=== PATIENT | male | born 2000 | race Caucasian/White ===

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

== ENCOUNTER 2022-03-24 11:22 | Emergency (ER) | payer MEDICAID, SELFPAY ==
[2022-03-24 11:23] VITALS: BP 129/73; PULSE 71; RESP 16; TEMP 35.6; O2SAT 100; BMI 37.7
--- NOTE | 2022-03-24 11:45 | EX.ED.DYSGE1 ---
HPI History of Present Illness Chief Complaint: Abd Pain Narrative Narrative: 21-year-old male presents with his mother because of umbilicus drainage and abdominal pain that has had since yesterday. He states he was having abdominal pain previously, and 2 days ago went to an outside facility where he had a CT scan performed and was diagnosed with an umbilical hernia. He was told to follow-up with a surgeon in [place]. He states yesterday he began having pain and discharge from his umbilicus. Mother had inserted a cotton tip swab and removed a large, black substance that was the size of her thumb tip from his umbilicus. He denies any fevers or chills. No nausea or vomiting, no other symptoms. They have noted foul discharge that is green to yellow in color that is malodorous. He has sensitivity around his umbilicus but no noted redness. He denies other symptoms. PFSH PFS Medical History no medical history Home Medications amoxicillin 875 mg-potassium clavulanate 125 mg tablet 1 tab PO BID #20 tabs 03/24/22 [Rx Last Taken Unknown] Allergy/AdvReac Type Severity Reaction Status Date / Time No Known Allergies Allergy Verified 03/24/22 11:22 Surgical History no surgical history Social History Smoking Status: Never smoker ROS ROS ED ROS Narrative Constitutional: No fever, no chills. HEENT: No sore throat. No neck pain. No loss of vision. No rhinorrhea. Cardiovascular: No chest pain. No palpitations. No pedal edema. Respiratory: No cough, no shortness of breath. Abdominal: Pain in umbilicus/abdominal pain. No nausea. No vomiting. Foul-smelling yellow to green discharge that had been slightly bloody. Genitourinary: No dysuria. No hematuria. Musculoskeletal: No myalgias. No arthralgias. Neurologic: No headaches. No dizziness. No lightheadedness. Skin: No rash. No change in color. Psychiatric: No depression. No anxiety. EXAM Physical Exam Narrative Exam Narrative: Afebrile. Vital signs noted. Nontoxic-appearing. HEENT: Normocephalic. Atraumatic. PERRL, EOMI. Neck soft and supple. No point tenderness or step off. Cardiovascular: Regular rate and rhythm. No murmurs, rubs, or gallops appreciated. Respiratory: No tachypnea. Lungs clear to auscultation bilaterally. Gastrointestinal: Abdomen soft, nontender, with normoactive bowel sounds. No rebound or guarding. Mild tenderness noted in umbilicus with purulent drainage noted. No active bleeding. Neurological: Awake. Alert. Nonfocal, nonlateralizing. Skin: No rash. Normal color. No pallor. Musculoskeletal: No pedal edema. Full range of motion extremities. Const Vital Signs: 03/24/22 11:23 Temperature 96.1 F L Temperature Source Temporal Pulse Rate 71 Respiratory Rate 16 Blood Pressure 129/73 H Blood Pressure Mean 91 Pulse Ox 100 Oxygen Delivery Method Room Air MDM MDM MDM Narrative Medical decision making narrative: I do not feel that CT imaging or laboratory work is indicated again. I do feel he has more of an omphalitis. It was reported that the mother may have removed a large navel stone. He was educated on navel hygiene. I do feel that this is a superficial cellulitis versus small abscess. He was given his first dose of Augmentin here in the emergency department, mainly to cover staph aureus. He is given a prescription to take twice a day for 10 days. He will take [id number] analgesics and follow-up with a primary care provider. Mother also requested referral to a surgeon on-call for his umbilical hernia. At this point in time, I feel he can be discharged safely home with follow-up. Return instructions were reviewed. Disposition is discharged home in stable condition. Discharge Plan Triage Chief Complaint: Abd Pain ED Provider: Reza Lui Dx/Rx/DC Orders Clinical Impression: Omphalitis in adult, Abscess of umbilicus Instructions: ED Abscess Antibiotic Treatment Only Prescriptions: New amoxicillin-pot clavulanate 875-125 mg tablet 1 tab PO BID Qty: 20 0RF Primary Care Provider: Johana Durant Referrals: Matt Bernal MD [Med Staff - Active Staff] - As Needed Johana Durant MD [Primary Care Provider] - 3-5 Days Disposition Disposition: Home, Self Care
[2022-03-24] MEDS: Amox/Clavulanate 875 MG Tablet PO (11:46)
== END 2022-03-24 11:58 | disposition home or self-care (01) ==
PROVIDERS: Emergency Provider Emergency Medicine; PCP Pediatrics; Visit Provider Emergency Medicine
DX: L08.82 Omphalitis not of newborn (principal); K42.9 Umbilical hernia without obstruction or gangrene
CPT/HCPCS: 99283